=== PATIENT | female | born 1940 | race Caucasian/White ===

== ENCOUNTER 2017-08-01 13:36 | Inpatient (IN) | payer MEDICARE ==
[~2017-08-01] VITALS: Ht 160 cm; Wt 48.6 kg
--- NOTE | ~2017-08-01 | WRIGHTHP ---
[place], [place] PATIENT HISTORY AND PHYSICAL EXAM [id number] #: [id number] ROOM: 309 DOCTOR: RENETTA LIMA MD BIRTHDATE: [birth year] DOS: 08/02/2017 CHIEF COMPLAINT: "What do you want?" HISTORY OF PRESENT ILLNESS: This is a 77-year-old white female, resident of [facility]. The patient is admitted due to significant mood lability and agitation. The patient has been screaming at times nonstop. She will yell out "help me, help me, help me, I want to go home, where is Piero, where is Piero or I want to ." Attempts to calm her and redirect her have only met with her becoming increasingly more agitated and labile and verbally and physically threatening. Attempts to adjust her medication there have not been successful and she continues to spiral out of control, disrupting the entire milieu, putting herself and others at risk for harm. PAST MEDICAL HISTORY: Remarkable for history of Alzheimer's disease, COPD, falls, GERD, hyperlipidemia, hypertension and a history of pulmonary nodules. MENTAL STATUS: The patient is alert and oriented to self only. Her responses to me this morning were short and simple, at times she would not even speak to me. She was rather dismissive and rather terse. There was no symptom suggestive of auditory or visual hallucinations. No hypomania or zurdo was noted. She does process extremely slowly and has sparsity of thought. She does exhibit poor short term memory. DIAGNOSES: Intermittent explosive disorder and brief psychotic disorder, rule out pseudobulbar affect. PLAN: I will continue to titrate her Exelon patch upwards, increasing it from 4.6 to 9.5 mg a day. I will go ahead and start her on Nuedexta 20-10 one tablet daily, monitor, engage in individuals and mcclellan milieu activities, returning to the least restrictive environment when stable. RENETTA LIMA MD CM:HISPHYS:PATIENT HISTORY AND PHYSICAL EXAMINATION [id number] RENETTA LIMA MD 08/02/17 0914 interface
--- NOTE | ~2017-08-01 | PR ---
[place], [place] PROGRESS NOTE NAME: AGAPITO OCHOA UNIT #: [id number] ROOM: 309 DOCTOR: RENETTA LIMA MD BIRTHDATE: [birth year] DOS: 08/04/2017 CHIEF COMPLAINT: "Where am I, I don't know where I am at." SUMMARY OF THE VISIT: The patient was interviewed as she was reclining in a Tiera chair in the quiet room. She was yelling upon approach, but stopped as I entered the door and began to talk to her. Nurses continue to report she has episodes of extreme mood lability and yelling out, some of this may be pain related, other of it may be related to her overall level of confusion. The behaviors have lessened with the initiation of the MS Contin. MENTAL STATUS: She remains alert and oriented to self only. Mood still seems labile. Affect at times is inappropriate. She jumps from topic to topic. Her responses are nonsensical at times. There is no significant zurdo or hypomania and there are no overt auditory or visual hallucinations. Memory is exceedingly poor. PLAN: I will maximize out the Exelon patch from 9.5 mg daily to 13.3 mg daily and begin to augment this now with Namenda 5 mg a day. Given the fact that she is still yelling at despite a valproic acid level that is nicely therapeutic at 76.1 and she is receiving the Remeron with not a lot of benefit noted, I will discontinue both the Remeron and the Depakote. I will start Elavil 25 mg b.i.d. and plan to increase this during the day. This should augment the effectiveness of the MS Contin giving her more pain relief and also act as an antidepressant and antianxiety agent, hoping calm her down and lift up her mood. We will continue to attempt to engage her in individual and mcclellan milieu activity with the ultimate plan to return to the least restrictive environment when psychiatrically stable. RENETTA LIMA MD CM:PNTRANS [id number] RENETTA LIMA MD 08/04/17 0908 interface
--- NOTE | ~2017-08-01 | PR ---
[place], [place] PROGRESS NOTE [id number] #: [id number] ROOM: 309 DOCTOR: RENETTA LIMA MD BIRTHDATE: [birth year] DOS: 08/03/2017 CHIEF COMPLAINT: "The patient was somnolent." SUMMARY OF THE VISIT: The patient was attempted to be interviewed that she sat in a Tiera chair watching television on and off in the television room. Nurses report that yesterday, they noticed that she seemed to be in excruciating pain and did ask the hospitalist to intervene and they wrote a prescription for MS Contin. Following the administration of this, the patient had a considerable decline in her overall yelling and screaming outbursts. They did talk at length with the patient's who noted that the patient's left leg had long been giving her pain and discomfort well before she had this secondary injury. So some of her yelling out and screaming could certainly be pain driven. MENTAL STATUS: She is alert to self only. She was rather somnolent this morning. She was pleasant, however, when she did open her eyes and there was no yelling or agitation noted. Of note, her valproic acid level is therapeutic at 76.1. Vitamin D is low at 25.3, so I will order vitamin D 50,000 international units every Friday and her vitamin B12 has been discontinued as it is very high. We will support and monitor, engage in individual and mcclellan milieu activity. RENETTA LIMA MD CM:PNTRANS [id number] RENETTA LIMA MD 08/03/17 1200 interface
--- NOTE | ~2017-08-01 | PR ---
[place], [place] PROGRESS NOTE NAME: AGAPITO OCHOA UNIT #: [id number] ROOM: 309 DOCTOR: RENETTA LIMA MD BIRTHDATE: [birth year] DOS: 08/05/2017 CHIEF COMPLAINT: The patient was too somnolent to talk. SUMMARY OF THE VISIT: The patient was attempted to be interviewed as she sat in the dining area, eating breakfast with assistance by one of the aides. She was able to eat her cereal and was able to open her eyes when I approached and called her name, but she did not make any attempt to verbalize. Nurses report that she continues to have episodes of yelling out, but the episodes have become less frequent and less intense. MENTAL STATUS: It is limited due to her overall somnolence. PLAN: At this point, I will continue to titrate the Namenda upwards, increasing it from 5 mg a day to 5 mg twice a day with a target dose of 10 mg twice a day in mind. I will bring the Nuedexta to its therapeutic level, increasing it to 20-10 one tablet every 12 hours to see if this will decrease some of the spontaneous and irrational emotional outbursts. We will continue to engage in individual and mcclellan milieu activities with the plan to return to [facility] when psychiatrically stable. RENETTA LIMA MD CM:PNTRANS [phone] RENETTA LIMA MD 08/05/17 0855 interface
[2017-08-01] MEDS ORDERED: BENAZEPRIL HYDR10 MG PO (14:26)
[2017-08-01] MEDS ORDERED: PANTOPRAZOLE SO40 MG PO (14:26)
[2017-08-01] MEDS ORDERED: ARICEPT10 M1 PO (14:27)
[2017-08-01] MEDS ORDERED: SIMVASTATIN40 MG PO (14:30)
[2017-08-01] MEDS ORDERED: CEROVITE SENIO1 EACH PO (14:31)
[2017-08-01] MEDS ORDERED: NAMENDA-28 PO (14:31)
[2017-08-01] MEDS ORDERED: Depakote Sprin125 MG PO (14:32)
[2017-08-01] MEDS ORDERED: DEPAKOTE SPRIN125 MG PO (14:32)
[2017-08-01] MEDS ORDERED: DUONEB 3 MG/3 ML3 M1 INH (14:55)
[2017-08-01] MEDS ORDERED: CEFUROXIME AXE500 MG PO (14:55)
[2017-08-01] MEDS ORDERED: DELTASONE20 M1 PO (14:56)
[2017-08-01] MEDS ORDERED: PREDNISONE10 MG PO ×2 (14:57→14:58)
[2017-08-01] MEDS ORDERED: TRAZODONE100 MG PO (15:01)
[2017-08-01] MEDS ORDERED: VITAMIN B COMP1 EAC1 PO (15:01)
[2017-08-01] MEDS ORDERED: TRAMADOL HCL50 MG PO (15:03)
[2017-08-01] MEDS ORDERED: XANAX1 MG PO (15:04)
[2017-08-01] MEDS ORDERED: TRAZADONE HYDR100 MG PO (15:05)
[2017-08-01] MEDS ORDERED: REMERON15 M2 PO (15:12)
[2017-08-01 17:54] VITALS: BP 134/89
[2017-08-01 17:55] LABS: BILIRUBIN NEGATIVE (NEGATIVE); BLOOD NEGATIVE (NEGATIVE); CLARITY SL CLOUDY (CLEAR); COLOR YELLOW (YELLOW); GLUCOSE NEGATIVE (NEGATIVE); KETONE NEGATIVE (NEGATIVE); LEUKO ESTERASE 1+ (NEGATIVE); NITRITE NEGATIVE (NEGATIVE); UROBILINOGEN 0.2 E.U./dl (0.2-1.0)
[2017-08-01 18:10] LABS: BACTERIA 1+; EPITHELIAL CELLS 45-50; WBC 31-40 wbc/hpf (0-5)
[2017-08-01 18:11] LABS: YEAST TRACE
[2017-08-01 19:34] LABS: BASO % 0.2 % (0.0-1.0); HEMATOCRIT 44.7 % (37.0-47.0); HEMOGLOBIN 14.2 g/dl (12.0-16.0); LYMPH # 1.3 10*3/uL (1.3-4.4); LYMPH % 13.8 % (27.0-41.0); MEAN CELL VOLUME 94.7 fl (81.0-99.0); MEAN CORPUSCULAR HGB 30.1 pg (27.0-31.0); MEAN CORPUSCULAR HGB CONC 31.8 g/dl (33.0-37.0); MEAN PLATELET VOLUME 10.1 fl (9.6-12.3); MONO # 0.4 10*3/uL (0.1-1.0); MONO % 4.1 % (3.0-9.0); NEUT # 7.4 10*3/uL (2.3-7.9); NEUT % 81.1 % (47.0-73.0); PLATELET COUNT AUTOMATED 129 10*3/uL (130-400); RED BLOOD COUNT 4.72 10*6/uL (4.10-5.10); RED CELL DISTRI WIDTH 14.4 % (0-14.5); WHITE BLOOD COUNT 9.1 10*3/uL (4.8-10.8)
[2017-08-01 19:54] LABS: ALBUMIN 3.1 gm/dl (3.1-4.5); ALKALINE PHOSPHATASE 87 U/L (45-117); BUN 31 mg/dl (7-24); CHLORIDE 105 mmol/L (98-107); CREATININE 0.81 mg/dL (0.55-1.02); POTASSIUM 4.3 mmol/L (3.5-5.1); SGOT/AST 16 IU/L (3-35); SGPT/ALT 33 U/L (12-78); SODIUM 143 mmol/L (136-145); TOTAL PROTEIN 6.7 gm/dL (6.4-8.2)
[2017-08-01 20:10] VITALS: BP 136/68
[2017-08-01 20:47] VITALS: BP 136/68
[2017-08-02 07:17] LABS: VALPROIC ACID (DEPAKENE) 76.1 ug/ml (50-100)
[2017-08-02 07:24] LABS: THYROID STIM HORMONE (HS) 3.34 uIU/ml (0.358-4.75)
[2017-08-02 07:51] VITALS: BP 132/80
[2017-08-02 08:29] LABS: VITAMIN D, 25-HYDROXY 25.3 ng/mL (30-100)
[2017-08-02 19:47] VITALS: BP 130/68
[2017-08-03 07:46] VITALS: BP 123/64
[2017-08-03 20:00] VITALS: BP 115/60
[2017-08-04 07:36] VITALS: BP 120/62
[2017-08-04 19:47] VITALS: BP 122/74
[2017-08-05 08:00] VITALS: BP 120/67
[2017-08-05] MEDS ORDERED: NAMENDA-5 PO (10:23)
[2017-08-05] MEDS ORDERED: EXEL13.31 T (10:24)
[2017-08-05] MEDS ORDERED: NUED1CAP PO (10:24)
[2017-08-05] MEDS ORDERED: AMITRIPTYLINE25 MG PO (10:25)
[2017-08-05] MEDS ORDERED: MS CONTIN15 MG PO (11:49)
[2017-08-06] MEDS ORDERED: ATROPINE SULFATE2 M2 SL (11:18)
[2017-08-06] MEDS ORDERED: LORAZEPAM0.5 MG SL (11:18)
[2017-08-06] MEDS ORDERED: MORPHINE S100 MG/5 M SL (11:18)
== END 2017-08-05 10:08 | disposition short-term general hospital (02) | DRG 883 ==
LOC: 3N 13:36
PROVIDERS: Psychiatry & Neurology Psychiatry
DX: F63.81 Intermittent explosive disorder (principal); J96.01 Acute respiratory failure with hypoxia; G93.40 Encephalopathy, unspecified; I95.9 Hypotension, unspecified; B37.0 Candidal stomatitis; G30.9 Alzheimer's disease, unspecified; F33.9 Major depressive disorder, recurrent, unspecified; F23 Brief psychotic disorder; F02.80 Dementia in other diseases classified elsewhere, unspecified severity, without behavioral disturbance, psychotic disturbance, mood disturbance, and anxiety; Z96.642 Presence of left artificial hip joint; E78.5 Hyperlipidemia, unspecified; J43.9 Emphysema, unspecified; I10 Essential (primary) hypertension; K21.9 Gastro-esophageal reflux disease without esophagitis; M25.552 Pain in left hip; B37.3 Candidiasis of vulva and vagina; Z66 Do not resuscitate; Z51.5 Encounter for palliative care; R40.0 Somnolence; Z79.899 Other long term (current) drug therapy; Z82.3 Family history of stroke; Z72.0 Tobacco use

== ENCOUNTER 2017-08-05 10:11 | Inpatient (IN) | payer MEDICARE ==
[~2017-08-05] VITALS: Ht 157.4 cm; Wt 63.5 kg
[~2017-08-05 10:11] MED LIST: ARICEPT10 M1 PO; BENAZEPRIL HYDR10 MG PO; CEFUROXIME AXE500 MG PO; CEROVITE SENIO1 EACH PO; DELTASONE20 M1 PO; DEPAKOTE SPRIN125 MG PO; DUONEB 3 MG/3 ML3 M1 INH; Depakote Sprin125 MG PO; NAMENDA-28 PO; PANTOPRAZOLE SO40 MG PO; PREDNISONE10 MG PO; REMERON15 M2 PO; SIMVASTATIN40 MG PO; TRAMADOL HCL50 MG PO; TRAZADONE HYDR100 MG PO; TRAZODONE100 MG PO; VITAMIN B COMP1 EAC1 PO; XANAX1 MG PO
[2017-08-05] MEDS ORDERED: NAMENDA-5 PO (10:23)
[2017-08-05] MEDS ORDERED: NUED1CAP PO (10:24)
[2017-08-05] MEDS ORDERED: EXEL13.31 T (10:24)
[2017-08-05] MEDS ORDERED: AMITRIPTYLINE25 MG PO (10:25)
[2017-08-05 10:30] VITALS: BP 66/43
[2017-08-05 10:46] LABS: ABG BASE EXCESS -1.1 mmol/L (-2.0-2.0); ABG HCO3 24.4 mmol/l (22-26); ABG O2 SATURATION 99.1 % (95-97); ARTERIAL BLOOD GAS PCO2 45.2 mmHg (35-45); ARTERIAL BLOOD GAS PH 7.348 (7.35-7.45)
[2017-08-05 11:06] LABS: ALBUMIN 2.7 gm/dl (3.1-4.5); CREATININE 4.14 mg/dL (0.55-1.02); TOTAL PROTEIN 6.3 gm/dL (6.4-8.2)
[2017-08-05 11:07] LABS: TROPONIN I 0.026 ng/ml (<0.045)
[2017-08-05 11:10] LABS: POTASSIUM 6.5 mmol/L (3.5-5.1)
[2017-08-05 11:25] LABS: HEMATOCRIT 38.2 % (37.0-47.0); HEMOGLOBIN 11.9 g/dl (12.0-16.0); MEAN CORPUSCULAR HGB 29.6 pg (27.0-31.0); MEAN CORPUSCULAR HGB CONC 31.2 g/dl (33.0-37.0); PLATELET COUNT AUTOMATED 111 10*3/uL (130-400); RED BLOOD COUNT 4.02 10*6/uL (4.10-5.10); WHITE BLOOD COUNT 14.7 10*3/uL (4.8-10.8)
[2017-08-05 11:28] LABS: PHOSPHOROUS 9.6 mg/dL (2.5-4.9)
[2017-08-05 11:46] LABS: PLATELET SUFFICIENCY LOW (NORMAL); TOTAL CELLS COUNTED 100 #CELLS
[2017-08-05] MEDS ORDERED: MS CONTIN15 MG PO (11:49)
[2017-08-05 12:00] VITALS: BP 74/43
[2017-08-05 16:00] VITALS: BP 67/41
[2017-08-05 20:00] VITALS: BP 90/65
[2017-08-06] MEDS ORDERED: LORAZEPAM0.5 MG SL (11:18)
[2017-08-06] MEDS ORDERED: ATROPINE SULFATE2 M2 SL (11:18)
[2017-08-06] MEDS ORDERED: MORPHINE S100 MG/5 M SL (11:18)
== END 2017-08-05 23:26 | disposition hospice, home (50) | DRG 189 ==
LOC: 5E 10:11
PROVIDERS: Internal Medicine
DX: J96.01 Acute respiratory failure with hypoxia (principal); N17.9 Acute kidney failure, unspecified; G93.40 Encephalopathy, unspecified; I95.9 Hypotension, unspecified; E87.5 Hyperkalemia; J44.9 Chronic obstructive pulmonary disease, unspecified; E83.51 Hypocalcemia; E83.39 Other disorders of phosphorus metabolism; G30.9 Alzheimer's disease, unspecified; F02.80 Dementia in other diseases classified elsewhere, unspecified severity, without behavioral disturbance, psychotic disturbance, mood disturbance, and anxiety; J96.02 Acute respiratory failure with hypercapnia; D72.829 Elevated white blood cell count, unspecified; Z66 Do not resuscitate; M25.552 Pain in left hip; Z51.5 Encounter for palliative care; R73.9 Hyperglycemia, unspecified; F32.9 Major depressive disorder, single episode, unspecified; K21.9 Gastro-esophageal reflux disease without esophagitis; E78.5 Hyperlipidemia, unspecified; I10 Essential (primary) hypertension; Z96.642 Presence of left artificial hip joint; Z82.3 Family history of stroke; Z72.0 Tobacco use; Z79.899 Other long term (current) drug therapy; Z91.81 History of falling; Z87.440 Personal history of urinary (tract) infections

== ENCOUNTER 2017-08-05 23:31 | Inpatient (IN) | payer OTHER, MEDICARE ==
[~2017-08-05] VITALS: Ht 157.4 cm; Wt 63.5 kg
[~2017-08-05 23:31] MED LIST changes: +AMITRIPTYLINE25 MG PO; +EXEL13.31 T; +MS CONTIN15 MG PO; +NAMENDA-5 PO; +NUED1CAP PO
[2017-08-06] VITALS: BP 98/48
[2017-08-06 08:46] VITALS: BP 70/46
[2017-08-06] MEDS ORDERED: MORPHINE S100 MG/5 M SL (11:18)
[2017-08-06] MEDS ORDERED: ATROPINE SULFATE2 M2 SL (11:18)
[2017-08-06] MEDS ORDERED: LORAZEPAM0.5 MG SL (11:18)
== END 2017-08-06 12:15 | disposition hospice, home (50) | DRG 189 ==
LOC: 5E 23:31
DX: J96.01 Acute respiratory failure with hypoxia (principal); G93.40 Encephalopathy, unspecified; N17.9 Acute kidney failure, unspecified; I95.9 Hypotension, unspecified; E87.5 Hyperkalemia; E83.51 Hypocalcemia; E83.39 Other disorders of phosphorus metabolism; G30.9 Alzheimer's disease, unspecified; J44.9 Chronic obstructive pulmonary disease, unspecified; F02.80 Dementia in other diseases classified elsewhere, unspecified severity, without behavioral disturbance, psychotic disturbance, mood disturbance, and anxiety; F23 Brief psychotic disorder; D72.829 Elevated white blood cell count, unspecified; J96.02 Acute respiratory failure with hypercapnia; M25.552 Pain in left hip; R73.9 Hyperglycemia, unspecified; Z66 Do not resuscitate; Z51.5 Encounter for palliative care; F32.9 Major depressive disorder, single episode, unspecified; K21.9 Gastro-esophageal reflux disease without esophagitis; E78.5 Hyperlipidemia, unspecified; I10 Essential (primary) hypertension; Z96.642 Presence of left artificial hip joint; Z82.3 Family history of stroke; Z79.899 Other long term (current) drug therapy